=== PATIENT | male | born 1930 | race African-American/Black ===

== ENCOUNTER 2018-02-01 10:55 | Inpatient (IN) | payer OTHER, BC ==
[~2018-02-01] VITALS: Ht 170.2 cm; Wt 73.2 kg
--- NOTE | ~2018-02-01 | HC ---
[facility] [place] [address] CONSULTATION Name: KRISTYN CHAVEZ Room #: 451-P [facility] IN M.R.#: [id number] Admission: 02/01/18 Attend Phys: Alex Fiore MD Discharge: Date of : [birth year] Report #: [id number] THIS REPORT FOR: //name// CC: FAM unknown Alex Pate DATE OF SERVICE: 02/02/2018 INFECTIOUS DISEASES CONSULTATION ATTENDING PHYSICIAN: Alex Fiore MD REASON FOR CONSULTATION: Right wrist cellulitis. HISTORY OF PRESENT ILLNESS: An 87-year-old man brought to [facility] to the Emergency Room with complaints of right wrist pain of 1-1/2 week duration according to patient's daughter. The patient also has a problem with left hip pain and on account of this, he could not transfer himself as he was doing previously. Denies fever. Daughter relates no fever or chills. The patient also having some altered mental status and confusion on account of current problem. PAST MEDICAL HISTORY: Peripheral vascular disease, status post right AKA, diabetes mellitus, hemorrhoids, cataracts, chronic kidney disease. DRUG ALLERGIES: None listed. MEDICATIONS: The patient is currently on treatment with vancomycin 500 mg daily, oxybutynin, duloxetine, aspirin, atorvastatin, subcutaneous heparin, cholecalciferol, insulin glargine, metoprolol, insulin lispro per sliding scale, normal saline at 1000 mL every 13 hours, p.r.n. glucose, glucagon, p.r.n. hydrocodone, p.r.n. morphine sulfate, p.r.n. ondansetron. SOCIAL HISTORY: See H and P. FAMILY HISTORY: See H and P. PHYSICAL EXAMINATION: GENERAL: The patient is mildly confused. He cannot answer simple question in a straightforward manner. He is mainly complaining of pain on the right wrist at present. The patient's daughter is concerned about confusion. Well-developed, not toxic looking black man, afebrile. VITAL SIGNS: As follows: Pulse 67-117, respirations 18, BP 192/93-195/102. Height 5 feet 7 inches, weight 180 pounds or maybe 162 pounds. I think I favor [facility] [address] [place] [place] [address] CONSULTATION Name: KRISTYN CHAVEZ Room #: 451-P ADM IN M.R.#: [id number] Admission: 02/01/18 Attend Phys: Alex Fiore MD Discharge: Date of : [birth year] Report #: [id number] 180 pounds. HEENMT: Heavy arcus cornealis bilaterally. Mouth: Upper and lower plates. No thrush. NECK: Supple. LUNGS: Clear to auscultation. HEART: S1, S2. No gallop or murmur. ABDOMEN: Soft, no masses or megaly. GENITALIA AND RECTAL: Deferred. EXTREMITIES: Reveal swelling, tenderness in right wrist joint area. No obvious cellulitis. The patient is having a flexed position due to pain. He is status post right AKA. Examination of the left foot revealed no arthritic changes. Motion of the left knee and left hip elicits no pain. NEUROLOGIC: Grossly within normal limits. LABORATORY DATA: Sodium 137, potassium 4.9, BUN 32, creatinine 1.9, glucose 138, 202. Uric acid 6.3. NT-proBNP 894. WBC 7600 yesterday and today is 13,400, hemoglobin 13.1 g/dL, platelets 188,000. White blood cell count differential yesterday revealed 72% neutrophils. Sedimentation rate 7-8 mm per hour. Procalcitonin normal. MICROBIOLOGY DATA: None available. RADIOLOGY EVALUATION: Chest x-ray revealed no acute process in the lungs. He does have degenerative changes of the scapuloclavicular joint area bilaterally. X-rays of the right wrist reveal osteoporotic changes, vascular calcifications, question calcification of the cartilage of the right wrist joint between the radius, ulna and carpal bones. We will await MRI report. ASSESSMENT: 1. Arthritis, right wrist, question pseudogout. 2. Left hip pain, by history, question etiology. 3. Diabetes mellitus. 4. Chronic kidney disease. 5. Peripheral vascular disease and right above-knee amputation. 6. Altered mental status secondary to above. SUGGESTIONS: Recommend continue vancomycin. Await MRI report right wrist. If calcium deposits in cartilage, favor a diagnosis of pseudogout and consequently trial of steroids. We will x-ray hips to see if he has degenerative changes as well. Dr. Fiore, thank you for requesting my suggestions. <ELECTRONICALLY SIGNED> By: Josué Barros MD 02/03/18 0831 1133 [id number] Josué Barros MD /nt
[~2018-02-01 10:55] MED LIST: ALFUZOSIN HCL10 MG PO; AMARYL4 MG PO; ASPIR 8181 MG PO; CIPROFLOXACIN500 M1 PO; LIPITOR40 MG PO; MYRBETRIQ25 MG PO; TRADJENTA PO; VESICARE 5 MG TA5 MG PO
[2018-02-01 11:06] VITALS: BP 195/102
[2018-02-01] MEDS ORDERED: APAP W/CODEINE1 TA2 PO (11:13)
[2018-02-01] MEDS ORDERED: ATORVASTATIN CA40 MG PO (11:13)
[2018-02-01] MEDS ORDERED: VITAMIN D1000 UNI1 PO (11:14)
[2018-02-01] MEDS ORDERED: PROAIR RESPICL90 MCG INH (11:14)
[2018-02-01] MEDS ORDERED: CYMBALTA30 MG PO (11:15)
[2018-02-01] MEDS ORDERED: LEVEMIR100 UNIT/1 SUBQ (11:16)
[2018-02-01] MEDS ORDERED: LOPRESSOR50 PO (11:16)
[2018-02-01] MEDS ORDERED: MIRALAX17 GM PO (11:16)
[2018-02-01] MEDS ORDERED: SENNA8.6 MG PO (11:17)
[2018-02-01] MEDS ORDERED: OXYBUTYNIN 5 MG5 M2 PO (11:17)
[2018-02-01] MEDS ORDERED: ANTACID325 MG PO (11:17)
[2018-02-01] MEDS ORDERED: DEMADEX20 MG PO (11:18)
[2018-02-01 12:25] LABS: ABSOLUTE NEUTROPHILS 5.5 thou/uL (1.4-8.2); BASOPHILS 0.7 % (0.0-2.0); EOSINOPHILS 0.5 % (0.0-3.0); HEMOGLOBIN 13.1 gm/dL (14.0-18.0); LYMPHOCYTES 18.8 % (24.0-44.0); MCH 30.4 pg (26.0-34.0); MCHC 33.7 g/dL (28.0-37.0); MCV 90.2 fL (80.0-100.0); PLATELET COUNT 170 thou/uL (150-400); RBC 4.33 mil/uL (4.50-6.00); RDW 14.6 % (10.5-14.5); WBC 7.6 thou/uL (4.0-11.0)
[2018-02-01 12:26] LABS: CALCIUM 10.5 mg/dL (8.5-10.1); CREATININE 2.1 mg/dL (0.7-1.3)
[2018-02-01 12:32] LABS: ALBUMIN 3.5 g/dL (3.4-5.0); TOTAL BILIRUBIN 0.6 mg/dL (<0.1-1.0); TOTAL PROTEIN 8.2 g/dL (6.4-8.2)
[2018-02-01 15:08] VITALS: BP 195/102
[2018-02-01 15:30] VITALS: BP 189/98
[2018-02-01 15:45] VITALS: BP 188/109
[2018-02-01 19:22] VITALS: BP 159/84
[2018-02-02 05:56] LABS: CALCIUM 9.3 mg/dL (8.5-10.1); CREATININE 1.9 mg/dL (0.7-1.3); POTASSIUM 4.9 mmol/L (3.5-5.1)
[2018-02-02 07:15] VITALS: BP 192/93
[2018-02-02 08:40] LABS: HEMATOCRIT 38.6 % (42.0-52.0); HEMOGLOBIN 13.1 gm/dL (14.0-18.0); MCH 31.2 pg (26.0-34.0); MCV 91.7 fL (80.0-100.0); RBC 4.21 mil/uL (4.50-6.00); RDW 14.5 % (10.5-14.5); WBC 13.4 thou/uL (4.0-11.0)
[2018-02-02 12:10] VITALS: BP 141/87
[2018-02-02 14:45] VITALS: BP 141/87
[2018-02-02 20:42] VITALS: BP 172/87
[2018-02-02 21:41] VITALS: BP 172/87
[2018-02-03 07:45] VITALS: BP 204/86
[2018-02-03 08:47] LABS: HEMATOCRIT 37.7 % (42.0-52.0); MCH 31.4 pg (26.0-34.0); MCHC 34.6 g/dL (28.0-37.0); MCV 90.6 fL (80.0-100.0); RBC 4.16 mil/uL (4.50-6.00); RDW 14.5 % (10.5-14.5); WBC 6.1 thou/uL (4.0-11.0)
[2018-02-03 09:30] LABS: ALBUMIN 3.1 g/dL (3.4-5.0); CALCIUM 9.3 mg/dL (8.5-10.1); CREATININE 1.9 mg/dL (0.7-1.3); TOTAL BILIRUBIN 0.4 mg/dL (<0.1-1.0); TOTAL PROTEIN 6.9 g/dL (6.4-8.2)
[2018-02-03 09:31] LABS: POTASSIUM 5.5 mmol/L (3.5-5.1)
[2018-02-03 11:15] VITALS: BP 167/89
[2018-02-03 16:41] VITALS: BP 172/95
[2018-02-03 19:00] VITALS: BP 190/81
[2018-02-03 23:40] VITALS: BP 190/81
[2018-02-04] VITALS (9 sets, daily range): BP systolic 147–223; BP diastolic 59–97
[2018-02-04 08:38] LABS: HEMATOCRIT 33.9 % (42.0-52.0); HEMOGLOBIN 11.3 gm/dL (14.0-18.0); MCH 30.2 pg (26.0-34.0); MCHC 33.3 g/dL (28.0-37.0); MCV 90.8 fL (80.0-100.0); RBC 3.74 mil/uL (4.50-6.00); RDW 13.9 % (10.5-14.5); WBC 5.4 thou/uL (4.0-11.0)
[2018-02-04 08:44] LABS: CALCIUM 9.7 mg/dL (8.5-10.1); CREATININE 1.8 mg/dL (0.7-1.3); MAGNESIUM 1.8 mg/dL (1.8-2.4); POTASSIUM 4.5 mmol/L (3.5-5.1)
[2018-02-05 07:13] LABS: HEMATOCRIT 34.6 % (42.0-52.0); HEMOGLOBIN 11.8 gm/dL (14.0-18.0); MCH 30.4 pg (26.0-34.0); MCHC 34.2 g/dL (28.0-37.0); MCV 88.9 fL (80.0-100.0); RBC 3.89 mil/uL (4.50-6.00); WBC 5.8 thou/uL (4.0-11.0)
[2018-02-05 07:31] LABS: CALCIUM 9.5 mg/dL (8.5-10.1); CREATININE 1.7 mg/dL (0.7-1.3); MAGNESIUM 1.7 mg/dL (1.8-2.4); POTASSIUM 4.7 mmol/L (3.5-5.1)
[2018-02-05 07:57] VITALS: BP 193/89
[2018-02-05] MEDS ORDERED: TYLENOL325 MG PO (12:17)
[2018-02-05] MEDS ORDERED: FELODIPINE ER10 MG PO (12:17)
[2018-02-05] MEDS ORDERED: DEPAKOTE 250MG250 M1 PO (12:17)
[2018-02-05] MEDS ORDERED: LINEZOLID600 MG PO (12:17)
[2018-02-05] MEDS ORDERED: LISINOPRIL10 MG PO (12:25)
[2018-02-05] MEDS ORDERED: HYDRALAZINE 10M10 MG PO (12:25)
[2018-02-05 14:32] VITALS: BP 166/80
[2018-02-05 14:35] VITALS: BP 166/80
== END 2018-02-05 15:05 | DRG 871 ==
LOC: ER 10:55 → EROBS 13:35 → 4W 13:35
PROVIDERS: Emergency Medicine; Hospitalist; Internal Medicine
PROC: 0R9N3ZZ Drainage of Right Wrist Joint, Percutaneous Approach (ICD-10-PCS; principal; 2018-02-03)
DX: A41.9 Sepsis, unspecified organism (principal); G93.41 Metabolic encephalopathy; L03.113 Cellulitis of right upper limb; N17.9 Acute kidney failure, unspecified; M00.9 Pyogenic arthritis, unspecified; N18.4 Chronic kidney disease, stage 4 (severe); M11.231 Other chondrocalcinosis, right wrist; E11.51 Type 2 diabetes mellitus with diabetic peripheral angiopathy without gangrene; M10.9 Gout, unspecified; E11.65 Type 2 diabetes mellitus with hyperglycemia; M19.031 Primary osteoarthritis, right wrist; E11.22 Type 2 diabetes mellitus with diabetic chronic kidney disease; M62.84 Sarcopenia; E78.5 Hyperlipidemia, unspecified; H18.413 Arcus senilis, bilateral; I12.9 Hypertensive chronic kidney disease with stage 1 through stage 4 chronic kidney disease, or unspecified chronic kidney disease; E55.9 Vitamin D deficiency, unspecified; G30.9 Alzheimer's disease, unspecified; F02.80 Dementia in other diseases classified elsewhere, unspecified severity, without behavioral disturbance, psychotic disturbance, mood disturbance, and anxiety; Z89.611 Acquired absence of right leg above knee; Z79.82 Long term (current) use of aspirin; Z79.899 Other long term (current) drug therapy; Z98.49 Cataract extraction status, unspecified eye
CPT/HCPCS: 10040

== ENCOUNTER 2018-02-05 14:10 | Inpatient (IN) | payer OTHER, BC ==
[~2018-02-05] VITALS: Ht 170.2 cm; Wt 71.2 kg
--- NOTE | ~2018-02-05 | HC ---
[facility] [place] [address] [address] [place] [address] CONSULTATION Name: KRISTYN CHAVEZ Room #: 505-P ADM IN M.R.#: [id number] Admission: 02/05/18 Attend Phys: Joshua Carey MD Discharge: Date of : [birth year] Report #: [id number] THIS REPORT FOR: //name// CC: Joshua Carey [facility] unknown DATE OF SERVICE: 02/16/2018 FITNESS AND WELLNESS INSTRUCTOR: Joshua Cano PhD. Assist with assessment pertinent to planning of a comprehensive rehabilitation program. HISTORY OF THE CURRENT ADMISSION: The patient was observed to present at the ER on 02/01/2018 with right wrist pain and swelling. He was also found at that time to have acute renal insufficiency with chronic kidney disease as well, and acute mental status changes consistent with encephalopathy. PAST MEDICAL HISTORY: Has included a right above the knee, leg amputation associated with non-insulin dependent diabetes mellitus. He is also reported to have hypertension. PERSONAL HISTORY: The patient lives at home with his and grandson. RESULTS OF THE EXAMINATION: The patient was interviewed lying in his hospital bed, alert and awake, and pleasant and cooperative. He was able to give a coherent account of events leading to his present stay in the rehab unit. He was able to provide remote personal and career history with good detail. He could recall that he has 3 children, but could not recall the exact number of grandchildren and great grandchildren which he has. The patient reported and displayed a euthymic mood, and denied significant anxiety. There were no behavioral or verbal indications of ongoing psychotic processes. The mini mental status exam 2 was administered and the patient scored at the 25th percentile, which is at the lower end of the average range of mental status. Registration, orientation to time and place, naming, repetition, comprehension, reading, and writing were all intact. He was able to recall only 1/3 previously registered words after 1 minute. He could perform only one step of the serial 7 subtraction task. He could not copy the drawing of 2 intersecting figures. Observed deficits could be due to continued effects of encephalopathy or to mild symptoms of a dementia. DIAGNOSIS: Mild neurocognitive deficits with multiple possible etiologies. His [address] [address] CONSULTATION Name: KRISTYN CHAVEZ Room #: 505-P ADM IN M.R.#: [id number] Admission: 02/05/18 Attend Phys: Joshua Carey MD Discharge: Date of : [birth year] Report #: [id number] deficits are not at a level of severity to preclude returning to his premorbid living arrangements following rehabilitation treatment. By: [id number] Joshua Cano, PhD /nt
--- NOTE | ~2018-02-05 | HC ---
[facility] [place] [address] [place] [address] CONSULTATION Name: KRISTYN CHAVEZ Room #: 505-P ADM IN M.R.#: [id number] Admission: 02/05/18 Attend Phys: Joshua Carey MD Discharge: Date of : [birth year] Report #: [id number] THIS REPORT FOR: //name// CC: Joshua Carey [facility] unknown DATE OF SERVICE: 02/06/2018 TYPE OF REPORT: Neurobehavioral status exam. ATTENDING PHYSICIAN: Joshua Carey M.D. PROJECT MANAGEMENT INSTRUCTOR: Jeronimo Grayson, Ph.D. CLINICAL PRESENTATION: The patient is an 87-year-old male admitted to the rehabilitation unit at [facility] for a comprehensive inpatient rehabilitation program to improve functional mobility, activities of daily living and self-care and mental status. He was initially admitted to the hospital with right wrist pain, swelling and erythema. It was determined that he had cellulitis and underwent a joint aspiration from Interventional Radiology. Diagnoses have included acute renal insufficiency, superimposed on chronic kidney disease and acute mental status changes. PAST MEDICAL HISTORY: Includes a right above the knee amputation, history of non-insulin dependent diabetes, back surgery, hemorrhoids and cataracts. His diagnosis on admission to rehab include his metabolic encephalopathy/multifactorial encephalopathy, right wrist cellulitis versus pseudogout, status post aspiration, hypertension, acute renal insufficiency superimposed on chronic kidney disease, premorbid right ikvoq-tqf-lvau amputation, peripheral vascular disease, diabetes mellitus type 2 and hyperlipidemia. A complete description of his medical condition and history can be found in his medical record. Neuropsychological consultation was requested to provide assistance in the assessment of cognitive and emotional status and to provide recommendations and services. Prior to this most recent admission, he was living with his in their home. Also living in the house is his grandson. The patient has had 3 children. A daughter is involved in his care to assist with decision making. He has a 10th grade education. 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 He does not report a prior history of treatment for depression or anxiety. TECHNIQUES UTILIZED: Clinical interview, review of medical records, staff consultation and behavioral observation, mini mental status exam 2 standard version and clock drawing. [facility] [address] [place] [address] CONSULTATION Name: KRISTYN CHAVEZ Room #: 505-P [facility] IN M.R.#: [id number] Admission: 02/05/18 Attend Phys: Joshua Carey MD Discharge: Date of : [birth year] Report #: [id number] EXAMINATION FINDINGS: The patient was alert and cooperative with the assessment. However, his speech was dysarthric and quiet, requiring encouragement to maintain alertness and improved articulation. He reports symptoms that suggest anxiety and depression. He was unable to indicate the reason for his hospitalization. He reports having difficulty with sleep and appetite. Memory is poor. Thought organization was impaired during the assessment as the patient presents with intermittent confusion. His performance on the MMSE 2 brief version was extremely low with a raw score of 5 of 16. He was 0 of 3 for immediate recall, 2 of 5 for orientation to time, 3 of [address] and 0 of 3 for immediate recall. The patient was 0 of 5 for serial sevens, 2 of 2 for naming, 0 of 1 for repetition. Auditory comprehension was inconsistent but satisfactory during the assessment. He was able to read and follow a single command. The patient was unable to copy a simple geometric design, he could not write a sentence or draw a picture of a clock. Upper extremity deficits are noted with evidence of apraxia. Decreased auditory comprehension is noted. DIAGNOSTIC IMPRESSION: 1. Delirium, hypoactive, acute. 2. Major neurocognitive disorder (dementia), unspecified, without behavior disorder - extent to be determined. 3. Unspecified depressive disorder. RECOMMENDATIONS: The patient will likely require 24-hour care to provide assistance in the management of medication, nutrition and finances. Frequent orientation will be necessary along with specific and concrete instructions during his rehabilitation program. Family education about the extent of his deficits and cognition are likely to be necessary. A followup neuropsychological evaluation will be helpful to clarify the severity of cognitive deficits upon resolution of the delirium. Thank you very much for allowing me to provide the consultation on this patient. By: [id number] Jeronimo Grayson, PhD /nt
--- NOTE | ~2018-02-05 | H ---
[facility] [place] [address] [address] [place] [address] HISTORY AND PHYSICAL Name: KRISTYN CHAVEZ Room #: 505-P ADM IN M.R.#: [id number] Admission: 02/05/18 Attend Phys: Joshua Carey MD Discharge: Date of : [birth year] Report #: [id number] THIS REPORT FOR: //name// CC: Joshua Carey [facility] unknown DATE OF SERVICE: 02/05/2018 HISTORY OF PRESENT ILLNESS: The patient is an 87-year-old -[place] male who originally presented to the Emergency Department at [facility] at 02/01/2018 with right wrist pain, swelling and erythema. Infectious Disease and Orthopedics geriatrics and hospitalist service have all been involved. He has been treated with antibiotics for cellulitis versus study versus pseudogout. He was seen by Interventional Radiology and underwent a joint aspiration. He also had acute renal insufficiency superimposed on chronic kidney disease and had acute mental status changes, thought to be consistent with encephalopathy. His mentation is thought to be overall improving. He still has considerable right wrist pain, but it is starting to decrease. He is not back to his baseline from a medication perspective. He has had a significant decline in his functional status. He has not been admitted for acute in-hospital inpatient rehabilitation. PAST MEDICAL HISTORY: Includes a right above-knee amputation. He has history of non-insulin dependent diabetes mellitus. He has had back surgery, hemorrhoids and cataracts. MEDICATIONS: Please see the full medication listing. This includes vitamins, herbals, and supplements. SOCIAL HISTORY: The patient premorbidly lives at home with his and grandson. He has a previous right above knee amputation and has a prosthesis, but rarely wears it. Premorbidly was independent with transfers from bed or chair to the wheelchair. He has an electric and manual wheelchair at home. He was independent with ADLs and his family. He has a IADLs. He does not drive. His has her own health issues. There is a daughter that is involved. PAST MEDICAL HISTORY: Includes hypertension, which he notes he has had some 15-20 years. ALLERGIES: No known drug allergies. HABITS: Nonsmoker, no history of alcohol abuse. SOCIAL HISTORY: Also includes living in a single-story house with and grandson, grandson works during the day. There are no stairs. [facility] [address] [place] [address] HISTORY AND PHYSICAL Name: KRISTYN CHAVEZ Room #: 505-P [facility] IN M.R.#: [id number] Admission: 02/05/18 Attend Phys: Joshua Carey MD Discharge: Date of : [birth year] Report #: [id number] REVIEW OF SYSTEMS: He noted that right wrist discomfort was improving. Did not offer any current complaints of chest pain, shortness of breath, abdominal discomfort. He did not complain of other extremity pain complaints at this time. He does note a chronic history of hypertension. PHYSICAL EXAMINATION: GENERAL: He is in no distress. The patient was actually seen later yesterday after admission. VITAL SIGNS: As noted. He has been running some higher blood pressures and the hospitalist service is involved and they are managing his antihypertensives and he is on q.4 hour vitals while awake while on rehabilitation. His facies appeared symmetric. There is a latency to his responses. He appears to be somewhat concrete. He can follow basic 1 step commands. EOMs appeared full. CHEST: Sounded clear to auscultation. CARDIOVASCULAR: Regular rate and rhythm. ABDOMEN: Bowel sounds positive, nontender. GENITOURINARY AND RECTAL: Deferred. EXTREMITIES: Functional range of motion of both upper extremities. Strength is a grade 4-/5. He tends to favor that right wrist some with definite decreased movie editor strength. There is some mild edema of that right hand and some mild warmth to touch. He does have some mild tenderness. Negative Moon's. As far as his lower extremities the right above knee amputation, which appears well healed. Left lower extremity is able to lift antigravity. Negative Homans. No pedal edema. Strength is probably a grade 3+4-/5. He has been needing max assist for basic transfers. He has problems with gait when asking questions with no obvious word finding difficulties. ASSESSMENT: This is an 87-year-old -[place] male with the following problem list: 1. Metabolic encephalopathy/multifactorial encephalopathy. 2. Right wrist cellulitis versus pseudogout is status post aspiration. He is on a Medrol Dosepak with Infectious Disease involved. 3. Hypertension. This has been a chronic problem. Hospitalist is involved. 4. Acute renal insufficiency superimposed on chronic kidney disease. 5. Premorbid right above-knee amputation. 6. Peripheral vascular disease. 7. Diabetes mellitus type 2. 8. Hyperlipidemia. PLAN: The patient is admitted for acute in-hospital inpatient rehabilitation. From a postadmission physician evaluation perspective, there are no relevant changes since the preadmission screening. Please see the above review of prior and current medical and functional conditions and comorbidities. Please see the previous and current functional status. As far as risk of complications, the patient has multiple medical comorbidities as noted above. We will also be monitoring him regarding safety issues, judgment and falls. Initial plan of [facility] [address] [place] [address] HISTORY AND PHYSICAL Name: KRISTYN CHAVEZ Room #: 505-P ADM IN M.R.#: [id number] Admission: 02/05/18 Attend Phys: Joshua Carey MD Discharge: Date of : [birth year] Report #: [id number] care involves the interdisciplinary acute inpatient rehabilitation program with goal of maximizing the patient's functional independence so that he can hopefully return back to his prior living situation. Measurable functional goals would be for him to become independent with basic transfers. Again, as he could before, so he can do basic transfers and ADLs. Also to work on improving his overall cognition with his encephalopathy. We will have speech therapy involved as well as rehabilitation psychology and the interdisciplinary rehab therapy team. Prognosis is reasonably good with estimated length of stay probably at least 2-3 weeks. Potential barriers would include his multiple medical comorbidities and decreased functional status. The patient meets diagnostic criteria for an acute in-hospital inpatient rehabilitation stay. He meets the medical necessity criteria with the multiple significant medical comorbidities and we will need to have the multiple test consultant physicians continue to follow while he is on the rehab carrillo. He does have the tolerance for therapies and has appropriate discharge goals back to the home setting. <ELECTRONICALLY SIGNED> By: Joshua Carey MD 02/18/18 1213 0833 0855 Joshua Carey MD /nt
--- NOTE | ~2018-02-05 | HC ---
[facility] [address] CONSULTATION Name: KRISTYN CHAVEZ Room #: 505-P ADM IN M.R.#: [id number] Admission: 02/05/18 Attend Phys: Joshua Carey MD Discharge: Date of : [birth year] Report #: [id number] THIS REPORT FOR: //name// CC: Joshua HENSON unknown DATE OF SERVICE: 02/17/2018 NEPHROLOGY CONSULTATION REASON FOR CONSULTATION: Elevated creatinine. HISTORY OF PRESENT ILLNESS: This 88-year-old gentleman presented, with a swollen, painful right wrist, possibly cellulitis, possibly arthritis, gout or pseudogout, apparently had a joint aspiration, but I cannot find anybody fluid analysis. In any event, he has had CKD with an elevated creatinine throughout the hospitalization of 2.1. He gives a history of prior transurethral prostate resection and prostatic hypertrophy in the past. MEDICATIONS: At the time of admission included Lipitor 40 mg daily, aspirin 81 mg daily, albuterol inhaler, vitamin D, Cymbalta 30 mg daily, metoprolol 50 mg b.i.d., oxybutynin 10 mg daily, sodium bicarbonate 325 mg t.i.d., torsemide 20 mg daily, apparently one time was on Myrbetriq, glimepiride, alfuzosin and Tradjenta as well. PAST MEDICAL HISTORY: Also includes history of hypertension, diabetes mellitus, right above-knee amputation for bad circulation, previous cataract surgery and previous back surgery. SOCIAL HISTORY: No cigarettes. Occasional alcohol. REVIEW OF SYSTEMS: GENERAL: He has been feeling reasonably well except for this wrist issue. EYES: His vision is okay. ENT: Denies mouth sores or ulcers. No problems with swallowing. ENDOCRINE: Positive for the diabetes. RESPIRATORY: Denies shortness of breath, pleuritic pain or cough. CARDIAC: Denies chest pain, angina or other heart problems. No palpitations or arrhythmias. GASTROINTESTINAL: No nausea, vomiting, diarrhea or bloody stools. GENITOURINARY: Urinary stream is a bit sluggish and he does describe his previous prostate history. NEUROLOGIC: Denies seizure, syncope, stroke or evidence of neuropathy. MUSCULOSKELETAL: He has a right sesyq-qac-ckkq amputation as mentioned. LABORATORY DATA: Urinalysis was done 10 days ago that was completely benign. [address] [address] CONSULTATION Name: KRISTYN CHAVEZ Room #: 505-P [facility] IN .R.#: [id number] Admission: 02/05/18 Attend Phys: Joshua Carey MD Discharge: Date of : [birth year] Report #: [id number] No proteinuria cells or casts. ASSESSMENT AND PLAN: He appears to have chronic kidney disease, history of hypertension. He has history of diabetes. He has history of prostatic hypertrophy. Renal sonography paraprotein studies, urine protein studies, urinalysis repeat will be done. I suspect this is chronic kidney disease and not much to do about it. He had been on lisinopril at least here in the hospital for a few days that was discontinued. He had been on diuretics. He is now a bit swollen. He probably needs to be restarted. He had been on beta alexandre and currently, is on amlodipine, which he had not been on before. I guess he has had some hypertension here in the hospital. We will check urine for proteinuria. If he does indeed have some, he would be indicated for a converting enzyme inhibitor. He is now on some hydralazine as well, therefore, he is on 2 vasodilators. Again, he is still on the beta alexandre as well. He is also still on the oxybutynin and wonder if he is having urinary retention. We will check for that. By: [id number] Kris Chatman MD /nt
[~2018-02-05 14:10] MED LIST changes: +ANTACID325 MG PO; +APAP W/CODEINE1 TA2 PO; +ATORVASTATIN CA40 MG PO; +CYMBALTA30 MG PO; +DEMADEX20 MG PO; +DEPAKOTE 250MG250 M1 PO; +FELODIPINE ER10 MG PO; +HYDRALAZINE 10M10 MG PO; +LEVEMIR100 UNIT/1 SUBQ; +LINEZOLID600 MG PO; +LISINOPRIL10 MG PO; +LOPRESSOR50 PO; +MIRALAX17 GM PO; +OXYBUTYNIN 5 MG5 M2 PO; +PROAIR RESPICL90 MCG INH; +SENNA8.6 MG PO; +TYLENOL325 MG PO; +VITAMIN D1000 UNI1 PO
[2018-02-05 16:00] VITALS: BP 179/81
[2018-02-05 19:55] VITALS: BP 162/92
[2018-02-06] VITALS: BP 170/102
[2018-02-06 07:44] LABS: HEMATOCRIT 35.5 % (42.0-52.0); HEMOGLOBIN 12.2 gm/dL (14.0-18.0); MCH 30.5 pg (26.0-34.0); MCHC 34.4 g/dL (28.0-37.0); MCV 88.9 fL (80.0-100.0); RBC 3.99 mil/uL (4.50-6.00); WBC 4.6 thou/uL (4.0-11.0)
[2018-02-06 07:57] LABS: CALCIUM 9.4 mg/dL (8.5-10.1); CREATININE 2.1 mg/dL (0.7-1.3); MAGNESIUM 1.7 mg/dL (1.8-2.4)
[2018-02-06 19:20] VITALS: BP 139/58
[2018-02-07] VITALS: BP 158/72
[2018-02-07 04:00] VITALS: BP 152/68
[2018-02-07 07:10] VITALS: BP 147/66
[2018-02-07 08:55] LABS: HEMOGLOBIN 12.8 gm/dL (14.0-18.0); MCH 30.8 pg (26.0-34.0); MCHC 34.5 g/dL (28.0-37.0); MCV 89.1 fL (80.0-100.0); RBC 4.15 mil/uL (4.50-6.00); RDW 14.1 % (10.5-14.5); WBC 4.8 thou/uL (4.0-11.0)
[2018-02-07 09:05] LABS: CALCIUM 9.7 mg/dL (8.5-10.1); CREATININE 2.4 mg/dL (0.7-1.3); POTASSIUM 4.8 mmol/L (3.5-5.1); TOTAL BILIRUBIN 0.3 mg/dL (<0.1-1.0); TOTAL PROTEIN 7.2 g/dL (6.4-8.2)
[2018-02-07 16:48] LABS: URINE BILIRUBIN NEGATIVE (Negative); URINE BLOOD NEGATIVE (Negative); URINE CLARITY CLEAR; URINE COLOR YELLOW; URINE GLUCOSE-RANDOM* NEGATIVE (Negative); URINE KETONES NEGATIVE (Negative); URINE LEUKOCYTES-REFLEX NEGATIVE (Negative); URINE NITRITE-REFLEX NEGATIVE (Negative); URINE PROTEIN (DIPSTICK) NEGATIVE (Negative); URINE UROBILINOGEN 0.2 E.U./dl (0.2-1.0)
[2018-02-07 19:20] VITALS: BP 131/61
[2018-02-08] VITALS: BP 135/65
[2018-02-08 04:00] VITALS: BP 147/60
[2018-02-08 05:42] LABS: HEMATOCRIT 37.8 % (42.0-52.0); HEMOGLOBIN 12.4 gm/dL (14.0-18.0); MCH 29.5 pg (26.0-34.0); MCHC 32.8 g/dL (28.0-37.0); RBC 4.2 mil/uL (4.50-6.00); RDW 14.1 % (10.5-14.5); WBC 5.2 thou/uL (4.0-11.0)
[2018-02-08 05:53] LABS: CALCIUM 9.4 mg/dL (8.5-10.1); CREATININE 2.4 mg/dL (0.7-1.3); MAGNESIUM 1.9 mg/dL (1.8-2.4); POTASSIUM 4.7 mmol/L (3.5-5.1)
[2018-02-08 07:15] VITALS: BP 158/60
[2018-02-08 12:38] VITALS: BP 123/62
[2018-02-08 19:50] VITALS: BP 174/66
[2018-02-09 03:44] LABS: HEMOGLOBIN 12.4 gm/dL (14.0-18.0); MCH 30.3 pg (26.0-34.0); MCHC 33.7 g/dL (28.0-37.0); MCV 90.1 fL (80.0-100.0); RBC 4.1 mil/uL (4.50-6.00); RDW 14.3 % (10.5-14.5); WBC 5.5 thou/uL (4.0-11.0)
[2018-02-09 04:06] LABS: CALCIUM 8.8 mg/dL (8.5-10.1); MAGNESIUM 1.8 mg/dL (1.8-2.4); POTASSIUM 4.7 mmol/L (3.5-5.1)
[2018-02-09 07:19] VITALS: BP 183/66
[2018-02-09 10:21] VITALS: BP 181/61
[2018-02-09 12:00] VITALS: BP 162/59
[2018-02-09 16:32] VITALS: BP 174/67
[2018-02-09 19:10] VITALS: BP 173/69
[2018-02-10 00:14] VITALS: BP 181/76
[2018-02-10 04:30] LABS: HEMOGLOBIN 11.8 gm/dL (14.0-18.0); MCH 29.3 pg (26.0-34.0); MCHC 32.7 g/dL (28.0-37.0); MCV 89.8 fL (80.0-100.0); RBC 4.01 mil/uL (4.50-6.00); RDW 14.1 % (10.5-14.5); WBC 3.8 thou/uL (4.0-11.0)
[2018-02-10 04:38] LABS: CALCIUM 8.7 mg/dL (8.5-10.1); CREATININE 1.7 mg/dL (0.7-1.3); MAGNESIUM 1.6 mg/dL (1.8-2.4); POTASSIUM 5.8 mmol/L (3.5-5.1)
[2018-02-10 06:27] VITALS: BP 199/76
[2018-02-10 07:15] VITALS: BP 205/65
[2018-02-10 15:58] VITALS: BP 189/74
[2018-02-10 19:30] VITALS: BP 186/69
[2018-02-11 05:00] VITALS: BP 182/72
[2018-02-11 05:30] VITALS: BP 179/70
[2018-02-11 06:20] LABS: HEMATOCRIT 34.3 % (42.0-52.0); HEMOGLOBIN 11.8 gm/dL (14.0-18.0); MCH 30.3 pg (26.0-34.0); MCHC 34.4 g/dL (28.0-37.0); MCV 88.2 fL (80.0-100.0); RBC 3.89 mil/uL (4.50-6.00); RDW 14.2 % (10.5-14.5); WBC 4.4 thou/uL (4.0-11.0)
[2018-02-11 06:43] LABS: CREATININE 1.7 mg/dL (0.7-1.3); MAGNESIUM 1.7 mg/dL (1.8-2.4); POTASSIUM 4.9 mmol/L (3.5-5.1)
[2018-02-11 07:24] VITALS: BP 197/71
[2018-02-11 12:33] VITALS: BP 175/64
[2018-02-11 19:50] VITALS: BP 156/61
[2018-02-11 23:59] VITALS: BP 181/61
[2018-02-12 04:07] VITALS: BP 179/66
[2018-02-12 06:07] LABS: ABSOLUTE NEUTROPHILS 3.4 thou/uL (1.4-8.2); BASOPHILS 0.3 % (0.0-2.0); HEMATOCRIT 33.3 % (42.0-52.0); HEMOGLOBIN 11.1 gm/dL (14.0-18.0); LYMPHOCYTES 26.9 % (24.0-44.0); MCH 29.7 pg (26.0-34.0); MCHC 33.3 g/dL (28.0-37.0); MCV 89.1 fL (80.0-100.0); MONOCYTES 6.4 % (1.0-8.0); PLATELET COUNT 234 thou/uL (150-400); POLYS 66.4 % (36.0-66.0); RBC 3.74 mil/uL (4.50-6.00); RDW 14.2 % (10.5-14.5); WBC 5.1 thou/uL (4.0-11.0)
[2018-02-12 06:17] LABS: CALCIUM 8.7 mg/dL (8.5-10.1); CREATININE 1.9 mg/dL (0.7-1.3)
[2018-02-12 07:20] VITALS: BP 170/61
[2018-02-12 12:28] VITALS: BP 180/68
[2018-02-12 15:50] VITALS: BP 167/69
[2018-02-12 20:05] VITALS: BP 165/69
[2018-02-13] VITALS (7 sets, daily range): BP systolic 149–182; BP diastolic 49–75
[2018-02-14 04:50] VITALS: BP 184/71
[2018-02-14 10:03] VITALS: BP 136/54
[2018-02-14 19:13] VITALS: BP 173/68
[2018-02-15 10:32] LABS: ABSOLUTE NEUTROPHILS 7.1 thou/uL (1.4-8.2); BASOPHILS 0.4 % (0.0-2.0); EOSINOPHILS 0.5 % (0.0-3.0); HEMATOCRIT 38.5 % (42.0-52.0); HEMOGLOBIN 12.9 gm/dL (14.0-18.0); LYMPHOCYTES 29.1 % (24.0-44.0); MCH 30.2 pg (26.0-34.0); MCHC 33.4 g/dL (28.0-37.0); MCV 90.4 fL (80.0-100.0); MONOCYTES 7.1 % (1.0-8.0); POLYS 62.9 % (36.0-66.0); RBC 4.26 mil/uL (4.50-6.00); RDW 14.2 % (10.5-14.5); WBC 11.8 thou/uL (4.0-11.0)
[2018-02-15 11:00] LABS: ALBUMIN 3.2 g/dL (3.4-5.0); CALCIUM 10.2 mg/dL (8.5-10.1); CREATININE 2.2 mg/dL (0.7-1.3); MAGNESIUM 1.8 mg/dL (1.8-2.4); POTASSIUM 5.9 mmol/L (3.5-5.1); TOTAL BILIRUBIN 0.2 mg/dL (<0.1-1.0); TOTAL PROTEIN 6.4 g/dL (6.4-8.2)
[2018-02-15 11:02] VITALS: BP 173/68
[2018-02-15 14:15] LABS: PLATELET COUNT 155 thou/uL (150-400)
[2018-02-15 19:15] VITALS: BP 151/61
[2018-02-16 08:22] VITALS: BP 119/50
[2018-02-16 13:45] VITALS: BP 137/40
[2018-02-16 14:17] LABS: CALCIUM 9.4 mg/dL (8.5-10.1); CREATININE 2.1 mg/dL (0.7-1.3); MAGNESIUM 1.8 mg/dL (1.8-2.4); POTASSIUM 4.9 mmol/L (3.5-5.1)
[2018-02-16 15:26] VITALS: BP 137/40
[2018-02-16 19:07] VITALS: BP 155/69
[2018-02-17 04:50] VITALS: BP 141/61
[2018-02-17 08:00] VITALS: BP 132/57
[2018-02-17 10:21] VITALS: BP 137/40
[2018-02-17 13:30] LABS: PROT/CREAT RATIO 0.3; URINE CREATININE-RANDOM* 97.2 mg/dL; URINE PROTEIN-RANDOM* 26.2 mg/dL (<11.9)
[2018-02-17 19:25] VITALS: BP 156/60
[2018-02-18 05:49] VITALS: BP 155/60
[2018-02-18 07:13] VITALS: BP 156/76
[2018-02-18] MEDS ORDERED: PROBIOTIC1 EAC1 PO (09:49)
[2018-02-18] MEDS ORDERED: HYDRALAZINE 10M10 MG PO (09:49)
[2018-02-18] MEDS ORDERED: MIRALAX17 GM PO (09:49)
[2018-02-18] MEDS ORDERED: NORVASC10 MG PO (09:49)
[2018-02-18] MEDS ORDERED: DEPAKOTE 250MG250 M1 PO (09:49)
[2018-02-18] MEDS ORDERED: HYDRALAZINE 2525 MG PO (09:49)
[2018-02-18] MEDS ORDERED: MELATONIN5 M1 PO (09:49)
[2018-02-18] MEDS ORDERED: SENNA8.6 MG PO (09:49)
[2018-02-18 11:36] VITALS: BP 137/40
[2018-02-18 14:55] VITALS: BP 137/40
[2018-02-18 15:11] LABS: KAPPA FREE LIGHT CHAINS 39.3 mg/L (3.3-19.4); KAPPA/LAMBDA RATIO 1.52 (0.26-1.65); LAMBDA FREE LIGHT CHAINS 25.9 mg/L (5.7-26.3)
[2018-02-24 12:10] LABS: GLOBULIN TOTAL 3.2 g/dL (2.2-3.9); M-SPIKE 0.5 g/dL (Not Observed)
== END 2018-02-18 14:48 | disposition home health service (06) | DRG 71 ==
PROVIDERS: Internal Medicine; Internal Medicine Nephrology; Nurse Practitioner; Physical Medicine & Rehabilitation
DX: G93.41 Metabolic encephalopathy (principal); N17.9 Acute kidney failure, unspecified; F05 Delirium due to known physiological condition; L03.113 Cellulitis of right upper limb; K56.7 Ileus, unspecified; N18.4 Chronic kidney disease, stage 4 (severe); E11.22 Type 2 diabetes mellitus with diabetic chronic kidney disease; E11.51 Type 2 diabetes mellitus with diabetic peripheral angiopathy without gangrene; E78.5 Hyperlipidemia, unspecified; I12.9 Hypertensive chronic kidney disease with stage 1 through stage 4 chronic kidney disease, or unspecified chronic kidney disease; K59.00 Constipation, unspecified; G30.9 Alzheimer's disease, unspecified; F02.80 Dementia in other diseases classified elsewhere, unspecified severity, without behavioral disturbance, psychotic disturbance, mood disturbance, and anxiety; E11.65 Type 2 diabetes mellitus with hyperglycemia; N40.0 Benign prostatic hyperplasia without lower urinary tract symptoms; M11.231 Other chondrocalcinosis, right wrist; M13.831 Other specified arthritis, right wrist; M62.84 Sarcopenia; E55.9 Vitamin D deficiency, unspecified; E87.5 Hyperkalemia; E83.42 Hypomagnesemia; F32.9 Major depressive disorder, single episode, unspecified; M25.431 Effusion, right wrist; Z98.42 Cataract extraction status, left eye; Z98.41 Cataract extraction status, right eye; Z89.611 Acquired absence of right leg above knee; Z79.899 Other long term (current) drug therapy
CPT/HCPCS: 10112